=== PATIENT | male | born 1975 | race Hispanic/Latino ===

== ENCOUNTER → 2024-03-21 | Day surgery (SDC) | payer OTHER ==
[~2024-03-21] MED LIST: DEXMEDETOMIDINE HCL 200 MCG/2 ML VIAL ONE; LACTATED RINGER'S 1,000 ML BAG ONE; LACTATED RINGER'S 1,000 ML ONE; LIDOCAINE HCL 2% LOCAL INJ 5 ML SDV VIAL INJ ONE; METFORMIN HCL500 MG PO; PROPOFOL IV EMULSION 10 MG/ML 50 ML VIAL IV ONE; VIT D2 PO; ZESTRIL2.5 MG PO
[2024-03-21 08:35] VITALS: BP 116/80; PULSE 70; RESP 18; TEMP 97.4; O2SAT 97
== END | disposition home or self-care (01) ==
LOC: OR 06:02
PROVIDERS: ATTEND Internal Medicine Gastroenterology
DX: Z12.11 Encounter for screening for malignant neoplasm of colon (principal); D12.2 Benign neoplasm of ascending colon; K57.30 Diverticulosis of large intestine without perforation or abscess without bleeding; K64.8 Other hemorrhoids; I10 Essential (primary) hypertension; E11.9 Type 2 diabetes mellitus without complications; E66.01 Morbid (severe) obesity due to excess calories; E55.9 Vitamin D deficiency, unspecified; Z01.810 Encounter for preprocedural cardiovascular examination; Z79.84 Long term (current) use of oral hypoglycemic drugs; Z79.899 Other long term (current) drug therapy
CPT/HCPCS: 36415; 45385; 82948; 93005; J2001; J2704; J7121; 45378

== ENCOUNTER → 2025-06-09 | Day surgery (SDC) | payer OTHER ==
[2025-06-06 15:00] LABS: EST GLOMERULAR FILTRATION RATE 105.0 ML/MIN (>=60)
[~2025-06-09] MED LIST changes: +ACETAMINOPHEN 1000 MG/100 ML 100 ML IV ONE; +ALLOPURINOL100 MG PO; -DEXMEDETOMIDINE HCL 200 MCG/2 ML VIAL ONE; +EPHEDRINE SULFATE INJ 50 MG/ML VIAL ONE; -LACTATED RINGER'S 1,000 ML BAG ONE; -LACTATED RINGER'S 1,000 ML ONE; +PROPOFOL IV EMULSION 10 MG/ML 20 ML VIAL ONE; -PROPOFOL IV EMULSION 10 MG/ML 50 ML VIAL IV ONE; +ROSUVASTATIN CA10 MG PO; +SEVOFLURANE INHAL SOLN 250 ML PEN BTL ONE
[2025-06-09] MEDS: LACTATED RINGER'S 1,000 ML ONE (11:39)
[2025-06-09] MEDS: CEFAZOLIN SODIUM 2 GM ONE (11:40)
[2025-06-09 14:40] VITALS: TEMP 97.2
[2025-06-09 16:00] VITALS: BP 142/76; PULSE 90; RESP 18; O2SAT 99
== END | disposition home or self-care (01) ==
LOC: OR 10:46
PROVIDERS: ATTEND Podiatrist Foot & Ankle Surgery
DX: S93.492A Sprain of other ligament of left ankle, initial encounter (principal); S82.832A Other fracture of upper and lower end of left fibula, initial encounter for closed fracture; I10 Essential (primary) hypertension; E78.5 Hyperlipidemia, unspecified; E11.9 Type 2 diabetes mellitus without complications; Z79.84 Long term (current) use of oral hypoglycemic drugs; M10.9 Gout, unspecified; M54.9 Dorsalgia, unspecified; Z01.810 Encounter for preprocedural cardiovascular examination; X58.XXXA Exposure to other specified factors, initial encounter; Z01.812 Encounter for preprocedural laboratory examination; Z79.899 Other long term (current) drug therapy
CPT/HCPCS: 27620; 27695; 36415 ×2; 80048; 82948; 88304; 88311; 93005; J0131; J2003; J2704; J7121; Q4150